=== PATIENT | female | born 1990 | race Two or more races ===

== ENCOUNTER 2017-11-13 03:32 | Emergency (ER) | payer OTHER ==
[~2017-11-13] VITALS: Ht 162.6 cm; Wt 100.0 kg
[2017-11-13 06:57] VITALS: BP 115/70
== END 2017-11-13 09:04 | disposition home or self-care (01) ==
LOC: ED 08:45
DX: F10.129 Alcohol abuse with intoxication, unspecified (principal); F14.120 Cocaine abuse with intoxication, uncomplicated; F32.9 Major depressive disorder, single episode, unspecified; F41.9 Anxiety disorder, unspecified
CPT/HCPCS: 99283